=== PATIENT | female | born 1985 | race Caucasian/White ===

== ENCOUNTER 2016-11-26 08:50 | Emergency (ER) | payer MEDICAID, OTHER ==
[2016-11-26 09:10] VITALS: BP 108/71; PULSE 50; RESP 16; TEMP 98.2; O2SAT 100
--- NOTE | 2016-11-26 09:36 | UCPHY ---
H & P Patient Type: Established Chief Complaint Nursing Narrative: C/o R 5th finger and R hand (near pinky side ) pain after it was caught in door today. Pt also c/o small laceration on R 5th finger. HPI/ROS: CHIEF COMPLAINT: Right hand injury HISTORY OF PRESENT ILLNESS: This patient is a 31 year old right-hand dominant woman presenting with acute right hand injury. She was walking her dog with the leash wrapped around her hand and accidentally caught her hand/finger in the door when her dog pulled her. The pain is localized to the base of the right 5th digit extending throughout the finger. Pain is moderate in severity. It is associated with a 1/3 cm superficial laceration between the PIP and the nail bed. She applied ice immediately to her hand and heidi taped her finger. She denies weakness or paresthesia. No other injuries. REVIEW OF SYSTEMS: A ten point review of systems was performed and is negative with the exception of the items mentioned in the HPI. Source: Patient Exam Limitations: No limitations - Personal History LMP (Females 10-55): 15-21 Days Ago Current Tetanus Diphtheria and Acellular Pertussis (TDAP): Yes Tetanus Vaccine Date: Sep 2012 - Medical/Surgical History Hx Asthma: No Hx Chronic Respiratory Disease: No Hx Diabetes: No Hx Cardiac Disease: No Hx Renal Disease: No Hx Cirrhosis: No Hx Alcoholism: No Hx HIV/AIDS: No Hx Splenectomy or Spleen Trauma: No Other PMH: Right femoral osteoplasty, labral reconstruction, appendectomy, ovarian cyst removed. bilateral hip reconstruction, depression. Bladder surgery yesterday for neurogenic bladder. 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 Vital signs reviewed. Focused exam was performed. Extremities: Tenderness and swelling to the right 5th digit. Tenderness over the MCP joint of the right 5th digit with ecchymoses at that site. No obvious deformity. There is a small 1/3cm superficial laceration between the PIP and the nail bed. Vascular: Right radial pulse is 2+. Brisk capillary refill. Neurologic: Sensation is intact to light touch over her right hand. No rotational deformity of the right digits. She is able to fully extend the digits of her right hand. She has pain with attempt to flex at the MCP of the right 5th digit. She is able to flex at the PIP and the IP, although it is uncomfortable for her to do so. Constitutional: Initial Vital Signs Temperature (C) 36.8 C 11/26/16 09:06 Heart Rate 50 L 11/26/16 09:06 Respiratory Rate 16 11/26/16 09:06 Blood Pressure 108/71 11/26/16 09:06 O2 Sat (%) 100 11/26/16 09:06 O2 Delivery Mode Room Air Allergies/Adverse Reactions: ketorolac tromethamine [From Toradol] Allergy (Severe, Verified 11/26/16 09:11) vomiting and rash promethazine HCl [From Phenergan] Allergy (Severe, Verified 11/26/16 09:11) Hives acetaminophen [From Percocet] Allergy (Intermediate, Verified 11/26/16 09:11) Vomiting oxycodone HCl [From Percocet] Allergy (Intermediate, Verified 11/26/16 09:11) Vomiting avocado [Avocado] Allergy (Unknown, Verified 11/26/16 09:11) Diarrhea Isovue 300 Allergy (Severe, Uncoded 11/26/16 09:11) Anaphylaxis, itching IV CONTRAST Allergy (Severe, Uncoded 11/26/16 09:11) Anaphylaxis, itching Home Medications: Medication Instructions Recorded Vitamin B Complex 1 tab PO DAILY 04/11/15 CALCIUM 10/05/15 Vitamin D3 10/05/15 Effexor 16 Hydrocodone/APAP 5/325 [[place] 1 - 2 tab PO Q4 PRN #10 tab 11/26/16 5/325 (RX)] Medical Decision Making - Diagnostics Imaging: Right hand X-ray was obtained. I viewed the images myself on the PACS system. My interpretation of the images is: Fracture of the proximal phalanx of the fifth digit. The radiologist interpretation is: Mildly shortened fracture of the proximal phalanx of the fifth digit. I discussed the x-ray findings with the patient. Procedures: The patient had x-rays taken and I confirmed that the patient had a mildly shortened fracture of the proximal phalanx of the right fifth digit. I do not believe that the patient requires immediate orthopedic consultation, nor do I believe that reduction at a later date will be required. An ulnar gutter ortho-glass splint was applied with ample cast padding in a position of function. After application of the splint, I returned and re-examined the patient. The splint was adequately immobilizing the joint and distal to the splint the patient's circulation and sensation was intact. ED Course/Re-evaluation: This patient presents with acute injury to the right hand, 5th digit. The digit is tender and swollen on exam. There is a superficial laceration, which is non- suturable. Right hand x-ray was obtained and demonstrates mildly shortened fracture of the proximal phalanx of the fifth digit. An orthoglass ulnar-gutter splint was applied by the RN. I have referred the patient to hand surgery. Instructed ibuprofen/Tylenol for pain relief. [place] prescribed for severe pain. Placed in sling for elevation. 1033: I consulted with Dr. Huggins, hand surgery, and informed him of the referral. Differential Diagnosis: Differential diagnosis includes but is not limited to sprain, fracture, dislocation, and contusion. Departure - Departure Disposition: Home, Routine, Self-Care Clinical Impression: Phalanx, proximal fracture of finger Qualifiers: Encounter type: initial encounter Finger: little finger Fracture type: closed Fracture alignment: nondisplaced Laterality: right Qualified Code(s): S62.646A - Nondisplaced fracture of proximal phalanx of right little finger, initial encounter for closed fracture Condition: Good Instructions: Finger Fracture (ED), Splint Care (ED) Additional Instructions: Rest, ice, elevation. Follow up with an hand surgeon within one week. Return to the emergency department for worsening pain, swelling, numbness, weakness or other concerns. Wear splint at all times until reevaluation. Take the [place], as prescribed, for severe pain. Wear the sling to keep your hand elevated. Adult Pain & Fever Control: We recommend Acetaminophen (Tylenol) and Ibuprofen (Motrin,Advil) for pain and fever control. When fever is high or pain severe, both drugs can be used at the same time, but at different intervals. Please note the time differences. Your dose is: Acetaminophen 650mg every 4 to 6 hours Ibuprofen 600mg every 6-8 hours with food Note: do not take Acetaminophen with Hydrocodone (Vicodin, Lortab) or Oycodone (Percocet). These medications also contain Acetaminophen. No more than 3000mg of Acetaminophen should be taken in 24 hours (for an adult). Referrals: Tacos Huggins MD [Medical Doctor] - As per Instructions (Hand surgeon.) Prescriptions: Hydrocodone/APAP 5/325 [[place] 5/325 (RX)] 1 - 2 tab PO Q4 PRN #10 tab PRN Reason: pain - PQRS PQRS Measurement: Does not apply Report Scribed for: Alona Keane Report Scribed by: Natalie Mcfarland Date of Report: 11/26/16 Time of Report: 09:46 Physician Review and Approval Statement: 11/26/16 09:36 Portions of this note were transcribed by the chief medical officer. I, Dr. Alona Keane, personally performed the history, physical exam, and medical decision- making; and confirmed the accuracy of the information in the transcribed note.
== END 2016-11-26 11:19 | disposition home or self-care (01) ==
LOC: CED 08:50
PROC: 2W3JX1Z Immobilization of Right Finger using Splint (ICD-10-PCS; principal; 2016-11-26)
DX: S62.646A Nondisplaced fracture of proximal phalanx of right little finger, initial encounter for closed fracture (principal); W23.1XXA Caught, crushed, jammed, or pinched between stationary objects, initial encounter; Y93.K9 Activity, other involving animal care; Y99.8 Other external cause status
CPT/HCPCS: 73130-PO; A4565; G0463-PO

== ENCOUNTER 2017-06-30 12:58 | Emergency (ER) | payer MEDICAID ==
[2017-06-30 13:13] VITALS: BP 118/62; PULSE 68; RESP 18; TEMP 98.4; O2SAT 97
--- NOTE | 2017-06-30 13:24 | EDPHY ---
H & P Stated Complaint: RT HIP PAIN Time Seen by Provider: 06/30/17 12:58 HPI/ROS: CHIEF COMPLAINT: Right hip pain HISTORY OF PRESENT ILLNESS: The patient presents to the ED with complaints of 2 days of right hip pain. 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 She developed pain inside the hip joint which has been persistent since that time. She is ambulatory however is having discomfort with ambulation. She denies any acute numbness or weakness. She denies additional traumatic injury. The patient does have a prior history of a bilateral hip reconstruction performed at [facility] several years ago. REVIEW OF SYSTEMS: A comprehensive 10 point review of systems is otherwise negative aside from elements mentioned in the history of present illness. Source: Patient Exam Limitations: No limitations - Personal History LMP (Females 10-55): 1-7 Days Ago Current Tetanus/Diphtheria Vaccine: Yes Current Tetanus Diphtheria and Acellular Pertussis (TDAP): Yes Tetanus Vaccine Date: Sep 2012 - Medical/Surgical History Hx Asthma: No Hx Chronic Respiratory Disease: No Hx Diabetes: No Hx Cardiac Disease: No Hx Renal Disease: No Hx Cirrhosis: No Hx Alcoholism: No Hx HIV/AIDS: No Hx Splenectomy or Spleen Trauma: No Other PMH: Right femoral osteoplasty, labral reconstruction, appendectomy, ovarian cyst removed. bilateral hip reconstruction, depression. Bladder surgery yesterday for neurogenic bladder. - Social History Smoking Status: Never smoked - Physical Exam Exam: General Appearance: Alert, no distress Neurological: 5/5 strength noted bilateral lower extremities, sensation intact to light touch throughout the bilateral lower extremities Skin: Warm and dry, no rashes Musculoskeletal: Patient has tenderness to palpation over the right hip, no obvious dislocation, normal range of motion Vascular: 2+ dorsalis pedis and posterior tibial pulses noted bilateral lower extremities Constitutional: Initial Vital Signs Temperature (C) 36.9 C 06/30/17 13:11 Heart Rate 68 06/30/17 13:11 Respiratory Rate 18 06/30/17 13:11 Blood Pressure 118/62 06/30/17 13:11 O2 Sat (%) 97 06/30/17 13:11 O2 Delivery Mode Room Air Allergies/Adverse Reactions: avocado [Avocado] Allergy (Unknown, Verified 11/26/16 09:11) Diarrhea Isovue 300 Allergy (Severe, Uncoded 11/26/16 09:11) Anaphylaxis, itching IV CONTRAST Allergy (Severe, Uncoded 11/26/16 09:11) Anaphylaxis, itching Medical Decision Making - Diagnostics Imaging Results: Right hip x-ray: Images reviewed by myself, negative for obvious fracture dislocation. ED Course/Re-evaluation: The patient presents to the ED with complaints of right hip pain after she landed awkward by dancing. She does have a history of prior orthopedic surgery in the hip. She was taken for x-rays which demonstrate no obvious fracture dislocation. The patient has been advised to follow up with her regular orthopedic surgeon who performed her hip surgery. She is also referred to our on-call orthopedic surgeon in the event she would like more local follow-up. Differential Diagnosis: Differential diagnosis considered includes fracture, dislocation, sprain, labral injury Departure - Departure Disposition: Home, Routine, Self-Care Clinical Impression: Right hip pain Condition: Good Instructions: Musculoskeletal Pain (ED) Additional Instructions: 1. I recommend scheduling a follow-up appointment with your orthopedic surgeon in [place]. 2. Your x-ray demonstrates no evidence of an obvious fracture. 3. Additional imaging including an MRI may be indicated for evaluation of your symptoms. Referrals: Iron Parra MD [Medical Doctor] - As per Instructions
== END 2017-06-30 14:03 | disposition home or self-care (01) ==
LOC: CED 12:58
DX: M25.551 Pain in right hip (principal)
CPT/HCPCS: 73502-PO

== ENCOUNTER → 2017-07-31 | Outpatient (CLI) | payer MEDICAID | LOC: FIMAGING 15:59 | PROVIDERS: ATTEND Family Medicine Sports Medicine | DX: S76.011A Strain of muscle, fascia and tendon of right hip, initial encounter (principal); Y93.41 Activity, dancing; Z98.890 Other specified postprocedural states ==

== ENCOUNTER → 2018-06-14 | Outpatient (CLI) | payer OTHER, MEDICAID | LOC: FIMAGING 08:52 | PROVIDERS: ATTEND Orthopaedic Surgery Sports Medicine | DX: Z01.818 Encounter for other preprocedural examination (principal); M25.552 Pain in left hip ==

== ENCOUNTER 2018-07-28 18:12 | Inpatient (IN) | payer MEDICAID, OTHER ==
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
--- NOTE | 2018-07-28 18:33 | EDPHY ---
ED Progress Note Narrative: Patient is here for preop for orthopedic surgery. She is alert and has normal mental status, medical screening examination offered and she declined.
[2018-07-28] MEDS ORDERED: PROPOFOL/EMULSION 500 MG/50 ML BOTTLE IV ONE (19:00)
[2018-07-28] MEDS ORDERED: fentaNYL 250 MCG/5 ML INJ ONE (19:02)
[2018-07-28] MEDS ORDERED: MIDAZOLAM 2 MG/2 ML VIAL IVP ONE (19:18)
[2018-07-28] MEDS ORDERED: MIDAZOLAM 2 MG/2 ML VIAL ONE ×2 (19:35→21:23)
[2018-07-28] MEDS ORDERED: MEPERIDINE 25 MG/0.5 ML AMP IVP PRN (20:29)
[2018-07-28] MEDS ORDERED: LR 500 ML IV PRN (20:29)
[2018-07-28] MEDS ORDERED: ONDANSETRON 4 MG/2 ML VIAL IVP PRN (20:29)
[2018-07-28] MEDS ORDERED: NALOXONE HCL 0.4 MG/ML INJ IVP PRN (20:29)
[2018-07-28] MEDS ORDERED: ALBUTEROL 3 ML DEYVIAL IH PRN (20:29)
[2018-07-28] MEDS ORDERED: fentaNYL 100 MCG/2 ML INJ IVP PRN (20:29)
[2018-07-28] MEDS ORDERED: DEXAMETHASONE 4 MG/ML VIAL IVP PRN (20:29)
[2018-07-28] MEDS ORDERED: ceFAZolin 1 GM/5 ML SYR ONE ×4 (20:31→20:57)
--- NOTE | 2018-07-28 20:32 | PDANEPAE ---
ANE History of Present Illness 34 year old female for I and D left hip wound s/p ROMARIO. ANE Past Medical History - Pulmonary History Hx Oxygen in Use at Home: No Hx Sleep Apnea: No - Endocrine History Hx Diabetes: No - Chronic Pain History Chronic Pain: No ANE Review of Systems Review of systems is: negative Review of Systems: ANE Patient History - Allergies Allergies/Adverse Reactions: avocado [Avocado] Allergy (Unknown, Verified 07/28/18 18:18) Diarrhea Isovue 300 Allergy (Severe, Uncoded 11/26/16 09:11) Anaphylaxis, itching IV CONTRAST Allergy (Severe, Uncoded 11/26/16 09:11) Anaphylaxis, itching - Home Medications Home Medications: Naproxen 07/28/18 [Last Taken Unknown] Wellbutrin 100mg (*) 07/28/18 [Last Taken Unknown] - NPO status NPO Since - Liquids (Date): 07/28/18 NPO Since - Liquids (Time): 11:30 NPO Since - Solids (Date): 07/28/18 NPO Since - Solids (Time): 11:30 - Smoking Hx Smoking Status: Never smoked ANE Labs/Vital Signs - Vital Signs Blood Pressure: 97/81 Heart Rate: 88 Respiratory Rate: 18 O2 Sat (%): 99 Height: 162.56 cm Weight: 56.699 kg ANE Physical Exam - Airway Neck exam: FROM Mallampati Score: Class 1 Mouth exam: normal dental/mouth exam - Pulmonary Pulmonary: no respiratory distress - Cardiovascular Cardiovascular: regular rate and rhythym - ASA Status ASA Status: I, E ANE Anesthesia Plan Anesthesia Plan: GA w LMA
[2018-07-28] MEDS ORDERED: HYDROmorphONE/DILAUDID 1 MG/ML INJ IVP PRN (21:33)
--- NOTE | 2018-07-28 21:42 | POSTANESTH ---
Post Anesthetic Evaluation Cardiovascular Status: Normal, Stable Respiratory Status: Normal, Stable Level of Consciousness/Mental Status: Can Participate in Eval Pain Control: Adequate, Prn Tx Ordered Nausea/Vomiting Control: Adequate, Prn Tx Ordered Complications Possibly Related to Anesthesia: None Noted
[2018-07-28] MEDS ORDERED: PROMETHAZINE HCL 25 MG/ML INJ ONE (21:45)
[2018-07-28] MEDS ORDERED: DIAZEPAM 10 MG/2 ML SYR IVP PRN (21:50)
[2018-07-28] MEDS ORDERED: HYDROmorphONE/DILAUDID 2 MG/ML INJ ONE (21:51)
[2018-07-28] MEDS ORDERED: DIAZEPAM 5 MG/ML 1 ML SYR ONE (21:53)
[2018-07-28] MEDS: HYDROmorphONE/DILAUDID 2 MG/ML INJ IVP PRN ×2 (22:06→23:44)
[2018-07-28] MEDS ORDERED: SCOPOLAMINE HYDROBROMIDE 1 MG/3 DAYS PATCH TD ONE (22:11)
[2018-07-28] MEDS: SCOPOLAMINE HYDROBROMIDE 1 MG/3 DAYS PATCH TD SCH (22:12)
[2018-07-28] MEDS ORDERED: ceFAZolin 2 GM/DEXTROSE 100 ML IV ONE (22:16)
[2018-07-28] MEDS ORDERED: ACETAMINOPHEN 500 MG TAB PO ONE (22:16)
[2018-07-28] MEDS ORDERED: PREGABALIN 150 MG CAP PO ONE (22:16)
[2018-07-28] MEDS ORDERED: DIAZEPAM 2 MG TAB PO PRN (22:32)
--- NOTE | 2018-07-28 23:54 | SUROPNOTE ---
LISA Operative Report - Surgery Surgery was performed at [facility] on~07/28/18~ Diagnosis: ~Pain/fever/drainage~generated~by superficial infection and possible screw involvement 4 weeks s/p ROMARIO Indication:~Failure to~respond to PO Abx treatment ~ Carmen has taken Keflex [id number] for 5 days with no clinical improvement, she has sub febrile fever up to 38c and on -going drainage. Due to the infection being on top of a screw and lack of clinical improvement we have decided to proceed with an I/D as the potential consequences of deep infection or septic arthritis can be devastating. ~ Consult was done with ID doc and plan was put in place. Cultures taken prior to initiation of Abx Tx showed MSSA. ~ Operation:~Left~incision I/D and~screw~change, multiple cultures of tissue/ screws Surgeon: Mike Sherman MD Doll Eye Setter:~~~Madhav ANAYA Anaesthetic:~General Procedure: The patient was placed in the supine position. Blood cultures were taken. Prepping and draping was performed as per usual fashion.~~ Incision was performed over previous scar to include the proximal area which was open already. No puss or fluid was seen. Cultures were taken from the area. Screw head (proximal, 5.5x95mm) was visible just under the infected area but with no drainage - culture was taken from within the cannulated screw. Rest of abdominal muscle were well healed and both middle and distal screw were well covered with no communication to the suspected infected area. No signs of infection were seen all around.~ Using a screwdriver the screw~was~removed~and 5 liters of irrigation with Ancef (1g/L) were used including into the screw tunnel. Spinal needle was directed into the inner pelvis but no fluid/puss was seen, no swelling was seen distally towards joint. After a thorough irrigation gloves/suction and instruments were changed and a new screw was placed (5.5x90mm) instead of the one which was removed, using a new route driver. This screw was driven deeper into the cortex to enable better soft tissue coverage. More irrigation/Abx~was~performed. Closure was performed through different layers.~The proximal part of the incision was closed with nylon to enable drainage if any. Dressings were applied. ~ Carmen~~tolerated the procedure with no complications. After surgery,~Carmen~~moved both lower limbs and had no NV compromise. ~ Specimen -~numerous Bleeding -~5ml Complication - none Post op instructions: Patient is admitted to the floor (3N) and will be under ID care and myself. Cefazolin 2gm IV q8h. FWB with crutches Kind regards, Dr. Mike Sherman .
[2018-07-29] MEDS: PROMETHAZINE HCL 25 MG/ML INJ IVP PRN ×8 (00:05→21:18)
[2018-07-29] MEDS: HYDROmorphONE/DILAUDID 1 MG/ML INJ IVP PRN (00:53)
[2018-07-29] MEDS: HYDROmorphONE/DILAUDID 6 MG/30 ML PCA IV PRN ×2 (01:36→13:46)
[2018-07-29] MEDS ORDERED: KETOROLAC 15 MG/1 ML SDV IVP ONE (02:00)
[2018-07-29] MEDS ORDERED: NALOXONE HCL 0.4 MG/ML INJ IVP PRN (02:00)
[2018-07-29] MEDS: ceFAZolin 2 GM/DEXTROSE 100 ML IV SCH ×3 (04:49→21:18)
--- NOTE | 2018-07-29 10:15 | PDMN ---
Medical Necessity Medical necessity: Pt meets IP criteria per MD & MCG; est los >2 mn for eval/tx of post-op wound infection w/failed outpatient abx tx s/p L ROMARIO; requiring L hip I&D w/screw removal/replacement, ID consult, IV abx & Dilaudid PARI [employer]; per H&P & order 07/28/18
[2018-07-29] MEDS: DIAZEPAM 5 MG/ML 1 ML SYR IVP PRN ×2 (11:55→18:03)
[2018-07-29 13:49] LABS: PLATELET COUNT 197 10^3/uL (150-400)
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
--- NOTE | 2018-07-29 16:42 | GCON ---
INFECTIOUS DISEASE CONSULTATION DATE OF CONSULTATION: 07/29/2018 REQUESTING PHYSICIAN: Dr. Mervin Ortiz. REASON FOR CONSULTATION: Postoperative hip infection. HISTORY OF PRESENT ILLNESS: The patient is a 33-year-old female who underwent left-sided periacetabu lar osteotomy (ROMARIO) approximately 4 weeks prior to admission, whom I am now asked to see in [facility] for postoperative infection. The patient describes developing a tender, erythematous bump over t he medial incision line approximately 1 week ago. This was associated with fever and chills. The ed ematous area was subsequently surrounded by localized erythema. The patient was evaluated on 018, where manual pressure was applied to the area yielding expression of purulent material which gre w MSSA. The patient was started on cephalexin but did not experience improvement in her symptoms. S he describes having continued drainage with surrounding erythema and had a temperature yesterday of 3 8.0. This prompted her admission with subsequent incision and drainage being performed. Intraoperat ively, she was noted to have an area of inflammatory change underlying a suture which was adjacent to one of her indwelling screws. No purulence was noted in communication with the screw. This screw w as subsequently removed, and the patient was irrigated with a new screw being placed subsequently. M ultiple culture specimens have been obtained with Gram stain showing no organisms and cultures conner douglass pending. The patient notes that she has had accompanying nausea without vomiting. She does desc ribe some diarrhea approximately 2 episodes per day with cephalexin. She is being managed postoperat ively with a ASSEMBLER ERECTOR for postoperative pain. Given the above findings, I am now asked to assist in her o ngoing management. PAST MEDICAL HISTORY: Hip dysplasia. PAST SURGICAL HISTORY: Right-sided ROMARIO, left-sided labral reconstruction, left-sided ROMARIO as noted ab ove. CURRENT MEDICATIONS: Cefazolin 2 g IV q.8 hours, Valium as needed, Dilaudid ASSEMBLER ERECTOR, scopolamine patch a pplied every 72 hours. SOCIAL HISTORY: Patient does not smoke or drink alcohol. 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 ALLERGIES: IV contrast associated with anaphylaxis. FAMILY HISTORY: Heart disease in her grandparents. REVIEW OF SYSTEMS: Outside that noted in the HPI, remainder of 10-system review is unremarkable. PHYSICAL EXAMINATION: VITAL SIGNS: Temperature 36.7, heart rate 57, respiratory rate 17, blood pres sure 87/46, oxygen saturation 97% on room air. GENERAL: Patient is well nourished, well developed, in no acute distress. She appears nontoxic. HEENT: There is no scleral icterus, conjunctival injec tion, or conjunctival petechiae. Oropharynx shows moist mucous membranes with no thrush. Dentition is in good repair. There is no nasal discharge. There is no sinus tenderness. NECK: Supple withou t palpable lymphadenopathy or thyromegaly. CHEST: Clear to auscultation bilaterally without adventi tious sounds. Respiratory effort is normal. CARDIOVASCULAR: Regular rate and rhythm without murmur s, gallops, or rubs. ABDOMEN: Soft, mildly tender around left anterior hip surgical site which is d ressed postoperatively. No surrounding erythema around dressing margins. Bowel sounds are present. No palpable organomegaly. MUSCULOSKELETAL: See abdominal exam. There is mild tenderness over the lateral thigh on the left. No cyanosis or clubbing. SKIN: No rashes noted. No stigmata of endocar ditis. Pictures that the patient has from approximately last week of time were reviewed today. NEUR OLOGIC: Patient is alert and interacts appropriately with examiner. Cranial nerves 2-12 are grossly intact. Muscle tone and bulk are normal. LYMPHATICS: No cervical or supraclavicular nodes. LABORATORY DATA: Hip culture from 07/23/2018, shows growth of MSSA. Multiple Gram stain and culture specimens from her operative procedure are currently pending with no organisms being seen and some s pecimens having white blood cells present. Blood cultures x2 sets are pending. IMPRESSION: Postoperative left hip infection due to methicillin-sensitive Staphylococcus aureus: Op erative findings have been reviewed with Dr. Ortiz with impression that clinical course may be relat ed to underlying stitch abscess, which was in proximity to one of the patient's screws. The screw baker s now been removed and replaced after irrigation and debridement. Will continue cefazolin pending ad ditional culture data. Duration of IV antibiotic therapy will be based in part on patient's clinical course and culture findings. RECOMMENDATIONS: 1. Continue cefazolin 2 g IV q.8 hours. 2. Follow cultures as available. 3. Follow clinical response postoperatively and with IV antibiotic therapy. 4. Follow up blood cultures as available. Thank you for this consultation. We will continue to follow the patient with you. /[id number]/MODL
[2018-07-30] MEDS: PROMETHAZINE HCL 25 MG/ML INJ IVP PRN ×7 (00:19→21:05)
[2018-07-30] MEDS: ceFAZolin 2 GM/DEXTROSE 100 ML IV SCH ×3 (05:30→21:05)
[2018-07-30] MEDS: HYDROmorphONE/DILAUDID 6 MG/30 ML PCA IV PRN ×2 (07:54→18:20)
--- NOTE | 2018-07-30 16:58 | PCMIDPN ---
Assessment/Plan: Assessment/Plan: * Postoperative left hip infection due to MSSA status post incision and drainage with screw removal and replacement: Cultures of suture and tissue around screw both showing growth of MSSA. Likely etiology for infection associated with suture. Given growth of MSSA on tissue localized around screw, favor 2 week course of IV cefazolin versus ceftriaxone which could be administered daily.. Discussed with patient concept of PICC line and outpatient antibiotic therapy today. She would like more time to digest use of PICC line and PICC insertion. Continue cefazolin in interim. 07/30/18 16:55 Subjective: Patient complains of hip pain which is less than yesterday. Has pruritis and nausea. No skin rash. Objective: Vital Signs Temp Pulse Resp BP Pulse Ox 36.7 C 67 14 97/63 L 91 L 07/30/18 16:00 07/30/18 16:00 07/30/18 16:00 07/30/18 16:00 07/30/18 16:00 Laboratory Results 07/29/18 13:40 07/29/18 13:40 07/29/18 07/30/18 07/31/18 05:59 05:59 05:59 Intake Total 1625 100 Output Total 1000 800 Balance 625 -700 Suture culture MSSA Tissue around screw culture MSSA Other operative cultures negative Blood cultures x2 no growth to date - Physical Exam General Appearance: alert, no apparent distress, non-toxic EENT: No scleral icterus Extremities: other (Left hip dressed postoperatively; patient without significant surrounding pain; 1+ surrounding edema; no erythema) Abdomen: non-tender, No distended - Time Spent With Patient Time Spent with Patient: greater than 25 minutes Time Spent with Patient: Greater than 25 minutes spent on this patients care, greater than 50% of time spent counseling, educating, and coordinating care regarding the above mentioned plan. ICD10 Worksheet Patient Problems: Problems Problem Status Onset Nausea and vomiting in adult Acute Pelvic pain in female Acute Phalanx, proximal fracture of finger Acute
--- NOTE | 2018-07-30 21:02 | SOAPPROG ---
SOAP Progress Note Assessment/Plan: Assessment: Plan: 07/30/18 20:59 I saw patient yesterday, POD 1, and today, and discussed her case with ID doc ( Dr Guardado). We are in agreement that to be on the safe side we will proceed with two weeks of IV due to the fact there is a screw in the region. It seems this was a stitch infection and although the stitch was removed we want to make sure the new screw would not get infected. I discussed this with the patient in length. Altogether clinically she is progressing well. Incision area looks good and clean. Dr Sherman Objective: Vital Signs Temp Pulse Resp BP Pulse Ox 36.7 C 65 18 111/59 L 98 07/30/18 20:00 07/30/18 20:00 07/30/18 20:00 07/30/18 20:00 07/30/18 20:00 Laboratory Results 07/29/18 13:40 07/29/18 13:40 07/29/18 07/30/18 07/31/18 05:59 05:59 05:59 Intake Total 1625 100 Output Total 1000 800 Balance 625 -700 ICD10 Worksheet Patient Problems: Problems Problem Status Onset Pelvic pain in female Acute Nausea and vomiting in adult Acute Phalanx, proximal fracture of finger Acute
[2018-07-31] MEDS: PROMETHAZINE HCL 25 MG/ML INJ IVP PRN ×7 (01:27→21:54)
[2018-07-31] MEDS: ceFAZolin 2 GM/DEXTROSE 100 ML IV SCH ×3 (04:56→21:51)
[2018-07-31] MEDS: HYDROmorphONE/DILAUDID 2 MG TAB PO PRN (09:22)
[2018-07-31] MEDS ORDERED: ALTEPLASE 2 MG VIAL IVP PRN (11:50)
--- NOTE | 2018-07-31 11:54 | PDIAF ---
- Diagnosis Diagnosis: Postoperative hip infection Code Status: Full Code - Medication Management Director Of [facility] Antibiotics: Cefazolin 6 g IV Q 24 hr by continuous infusion Snf Antibiotic Stop Date: 08/11/18 Discharge Medications: electronically signed and located in the Home Medication List. PICC Care - Routine: Yes - Orders Services needed: Home Snf Care Face to Face: I certify that this patient was under my care and that I had the required [id number] encounter meeting the encounter requirements on the discharge day. My findings support the fact that the patient is homebound as defined in Home Care Face to Face Continued: CMS Chapter 7 Medicare Benefits Manual 30.1.1 , The condition of the patient is such that there exists a normal inability to leave home and consequently, leaving home would require a considerable and taxing effort. Isolation Type: None - Labs/Radiology CBC w/diff Date: 08/02/18 (Weekly Q ) CMP Date: 08/02/18 (Weekly Q ) Call or Fax Lab and Imaging Results to: Dr. Guardado, - Follow Up Care Current Providers and Referrals: Lilian Amado DO [Primary Care Provider] - As per Instructions Ryan Guardado MD [Medical Doctor] - 08/08/18 2:00 pm
[2018-07-31] MEDS: DIAZEPAM 5 MG/ML 1 ML SYR IVP PRN ×2 (13:42→21:51)
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
--- NOTE | 2018-07-31 14:34 | ASMTCMCOM ---
CM Note CM Note Notes: Pt will d/c with 6 g cefazoline continuous infusion, [facility] can accept for infusion. Pt still needs picc. [facility], [facility]. CM to follow. Date Signed: 07/31/2018 02:33 PM Electronically Signed By:BRYN Sandoval
[2018-07-31] MEDS: HYDROmorphONE/DILAUDID 6 MG/30 ML PCA IV PRN (14:42)
[2018-07-31] MEDS ORDERED: ONDANSETRON 4 MG/2 ML VIAL IVP ONE (15:44)
[2018-07-31] MEDS ORDERED: FLUMAZENIL 0.5 MG/5 ML MDV IVP PRN (15:44)
[2018-07-31] MEDS ORDERED: fentaNYL 100 MCG/2 ML INJ IVP PRN (15:44)
[2018-07-31] MEDS ORDERED: MIDAZOLAM 2 MG/2 ML VIAL IVP PRN (15:44)
[2018-07-31] MEDS ORDERED: NALOXONE HCL 0.4 MG/ML INJ IVP PRN (15:44)
[2018-07-31] MEDS ORDERED: MIDAZOLAM 2 MG/2 ML VIAL ONE (16:59)
[2018-07-31] MEDS ORDERED: fentaNYL 100 MCG/2 ML INJ ONE (17:05)
--- NOTE | 2018-07-31 17:08 | PDPROPOC ---
Sedation Plan of Care Sedation Plan of Care: vital signs stable, mental status noted, patient educated of risks, benefits, alternatives, patient can tolerate sedation ASA Classification: ASA 2 Planned drugs: fentanyl, midazolam Mallampati Score: Class 1 Mallampati Reference Image: Patient passed 3-3-2 rule?: Yes
[2018-07-31] MEDS ORDERED: HYDROmorphONE/DILAUDID 2 MG/ML INJ ONE (17:31)
[2018-07-31] MEDS: HYDROmorphONE/DILAUDID 1 MG/ML INJ IVP PRN (17:36)
--- NOTE | 2018-07-31 20:18 | SOAPPROG ---
SOAP Progress Note Assessment/Plan: Assessment: 3rd day post op Left Hip wash out and screw replacement Plan: IV antibiotics PICC Line D/C home tomorrow Valium script written and put in chart Carmen declines pain medication script as she has enough pain medications at home 07/31/18 20:13 Subjective: I saw Carmen this evening in the PACU after her PICC line placement. She reports decreased pain in Left Hip but still notes some deep ache lateral to incision. She would like to go home tomorrow morning and feels ready to do so. Objective: Vital Signs Temp Pulse Resp BP Pulse Ox 36.7 C 56 L 17 113/67 99 07/31/18 18:40 07/31/18 18:40 07/31/18 18:40 07/31/18 18:40 07/31/18 18:40 Laboratory Results 07/29/18 13:40 07/29/18 13:40 07/30/18 07/31/18 08/01/18 05:59 05:59 05:59 Intake Total 1625 2320 0 Output Total 1000 1400 Balance 625 920 0 Pt still somewhat sedated in the PACU in NAD Left hip: steri strips in place no surrounding erythema some edema and scattered ecchymosis NVI distally full ROM of left lower extremity - Pending Discharge Pending Discharge Within 24 Hours: Yes Pending Discharge Date: 08/01/18 Pending Discharge Time: 11:00 ICD10 Worksheet Patient Problems: Problems Problem Status Onset Nausea and vomiting in adult Acute Pelvic pain in female Acute Phalanx, proximal fracture of finger Acute
[2018-07-31] MEDS: SCOPOLAMINE HYDROBROMIDE 1 MG/3 DAYS PATCH TD SCH (21:51)
[2018-08-01] MEDS: PROMETHAZINE HCL 25 MG/ML INJ IVP PRN ×4 (05:09→20:27)
[2018-08-01] MEDS: ceFAZolin 2 GM/DEXTROSE 100 ML IV SCH ×3 (05:09→20:33)
--- NOTE | 2018-08-01 10:10 | ASMTCMCOM ---
CM Note CM Note Notes: Picc report sent to [facility] in [employer]. Date Signed: 08/01/2018 10:09 AM Electronically Signed By:BRYN Sandoval
[2018-08-01] MEDS: HYDROmorphONE/DILAUDID 6 MG/30 ML PCA IV PRN (10:43)
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
[2018-08-01] MEDS: DIAZEPAM 5 MG/ML 1 ML SYR IVP PRN (14:44)
[2018-08-01] MEDS: HYDROmorphONE/DILAUDID 1 MG/ML INJ IVP PRN ×2 (17:19→21:59)
--- NOTE | 2018-08-01 18:18 | SOAPPROG ---
SOAP Progress Note Assessment/Plan: Assessment: 33 yo F POD 4 s/p L hip wound I&D, screw exchange. Some difficulty with nausea/ vomiting, though improving. Plan: Continue IV antibiotics via PICC line Continue PO/IV pain control Continue benadryl, phenergan PRN nausea as this combination works well for her Continue valium PRN muscle spasm Plan for likely discharge tomorrow if doing well 08/01/18 18:14 Subjective: Pt reports some nausea/vomiting, difficulty tolerating PO. Pain control adequate. Objective: Vital Signs Temp Pulse Resp BP Pulse Ox 36.7 C 61 14 92/65 L 98 08/01/18 15:19 08/01/18 15:19 08/01/18 15:19 08/01/18 15:19 08/01/18 15:19 Laboratory Results 07/29/18 13:40 07/29/18 13:40 07/31/18 08/01/18 08/02/18 05:59 05:59 05:59 Intake Total 2320 784 1360 Output Total 1400 Balance 586 629 7318 L hip dressing c/d/i No significant surrounding erythema ICD10 Worksheet Patient Problems: Problems Problem Status Onset Nausea and vomiting in adult Acute Pelvic pain in female Acute Phalanx, proximal fracture of finger Acute
[2018-08-02] MEDS: PROMETHAZINE HCL 25 MG/ML INJ IVP PRN ×5 (05:24→18:54)
[2018-08-02] MEDS: ceFAZolin 2 GM/DEXTROSE 100 ML IV SCH ×2 (05:38→13:27)
[2018-08-02] MEDS: HYDROmorphONE/DILAUDID 1 MG/ML INJ IVP PRN (05:38)
[2018-08-02] MEDS: HYDROmorphONE/DILAUDID 2 MG TAB PO PRN ×2 (10:33→16:29)
--- NOTE | 2018-08-02 15:35 | PDIAF ---
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 Benadryl 25mg IV Q6 HRS PRN NAUSEA Discharge Medications: electronically signed and located in the Home Medication List. PICC Care - Routine: Yes - Orders Services needed: Home Jail Care Face to Face: I certify that this patient was under my care and that I had the required [id number] encounter meeting the encounter requirements on the discharge day. My findings support the fact that the patient is homebound as defined in Home Care Face to Face Continued: CMS Chapter 7 Medicare Benefits Manual 30.1.1 , The condition of the patient is such that there exists a normal inability to leave home and consequently, leaving home would require a considerable and taxing effort. Isolation Type: None Diet Recommendation: no restrictions on diet Additional Instructions: Full Weight bearing with crutches, IV antibiotics per Infectious Disease, Follow up with Dr. Sherman in 2 weeks. - Labs/Radiology CBC w/diff Date: 08/02/18 (Weekly Q ) CMP Date: 08/02/18 (Weekly Q ) Call or Fax Lab and Imaging Results to: Dr. Guardado, - Follow Up Care Current Providers and Referrals: Ryan Guardado MD [Medical Doctor] - 08/08/18 2:00 pm Lilian Amado DO [Primary Care Provider] - As per Instructions
[2018-08-02 15:43] VITALS: BP 106/72
--- NOTE | 2018-08-02 15:48 | ASMTCMCOM ---
CM Note CM Note Notes: Pt medically stable for d/c with [facility] home infusion and [facility] RN (orders sent in [employer]). Britt in admissions updated, [facility] to deliver IV phenergan and antibiotics to hospital. [facility] to start care tomorrow. Pt has transport home. Date Signed: 08/02/2018 03:48 PM Electronically Signed By:BRYN Sandoval
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
== END 2018-08-02 20:25 | disposition home or self-care (01) | DRG 711 ==
LOC: EDSTATUS 18:12 → FSGY 19:27 → F3N 23:15
PROVIDERS: ADMIT Orthopaedic Surgery Sports Medicine; ATTEND Orthopaedic Surgery Sports Medicine
DX: T85.79XA Infection and inflammatory reaction due to other internal prosthetic devices, implants and grafts, initial encounter (principal); B95.61 Methicillin susceptible Staphylococcus aureus infection as the cause of diseases classified elsewhere
CPT/HCPCS: C1713; C1751; J0690; J1170; J1200; J1885; J2250; J2310; J2550; J2704; J3010; J3360

== ENCOUNTER → 2018-08-08 | Outpatient (CLI) | payer MEDICAID | LOC: FIMAGING 14:33 | PROVIDERS: ATTEND Internal Medicine Infectious Disease | DX: R00.2 Palpitations (principal); T82.898A Other specified complication of vascular prosthetic devices, implants and grafts, initial encounter ==

== ENCOUNTER 2018-10-20 17:26 | Observation (INO) | payer MEDICAID ==
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
[2018-10-20] MEDS ORDERED: HYDROmorphONE/DILAUDID 1 MG/ML INJ IVP ONE ×3 (17:44→19:47)
[2018-10-20] MEDS ORDERED: ONDANSETRON 4 MG/2 ML VIAL IVP ONE (18:29)
[2018-10-20 18:46] LABS: PLATELET COUNT 303 10^3/uL (150-400)
[2018-10-20 18:54] LABS: INR 1.06 (0.83-1.16)
[2018-10-20] MEDS ORDERED: DIAZEPAM 5 MG/ML 1 ML SYR IVP ONE (18:58)
[2018-10-20] MEDS ORDERED: fentaNYL 100 MCG/2 ML INJ IVP ONE (20:38)
[2018-10-20] MEDS ORDERED: HYDROmorphONE/DILAUDID 1 MG/ML INJ IVP PRN (21:29)
[2018-10-20] MEDS ORDERED: ONDANSETRON 4 MG/2 ML VIAL IVP PRN (21:29)
[2018-10-20] MEDS ORDERED: ONDANSETRON DISINTEGRATING 4 MG TAB PO PRN (21:29)
[2018-10-20] MEDS: HYDROmorphONE/DILAUDID 2 MG TAB PO PRN (21:55)
[2018-10-20] MEDS: DIAZEPAM 5 MG TAB PO PRN (21:55)
--- NOTE | 2018-10-20 22:22 | GHP ---
DATE OF ADMISSION: 10/20/2018 CHIEF COMPLAINT: Hip pain. HISTORY OF PRESENT ILLNESS: This is a 33-year-old female, who has a history of bilateral hip dysplas ia, status post bilateral ROMARIO by Dr. Sherman. She states that she was hiking and then she fell on he r left hip, has been unable to move her hip since then. The pain is there with movement and even whe n she is just sitting there. Otherwise, no other symptoms. REVIEW OF SYSTEMS: A 10-point review of systems was obtained and otherwise negative. PAST MEDICAL HISTORY: 1. 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 She was treated with IV antibiotics for 4 weeks and the n had been on oral antibiotics. 2. Depression. 3. Bladder surgery. MEDICATIONS: Reviewed. SOCIAL HISTORY: No smoking or alcohol. FAMILY HISTORY: Reviewed and noncontributory. PHYSICAL EXAMINATION: VITAL SIGNS: Afebrile. Blood pressure is 114/63, heart rate 65, oxygen satur ation 96% on 2 L. GENERAL: The patient in no apparent distress. HEENT: Nonicteric sclerae. Extra ocular movements intact. Moist mucous membranes. NECK: Supple. No thyromegaly. LUNGS: Good effo rt. Clear to auscultation bilaterally. CARDIOVASCULAR: Regular rate and rhythm. No murmurs, rubs, or gallops. ABDOMEN: Positive bowel sounds. Soft, nontender, nondistended. No hepatosplenomegaly . EXTREMITIES: No clubbing or cyanosis. Her left hip has significant pain with any type of motion. LABS: CBC and chemistry are normal. Pelvis CT shows healing osteotomy on the left with no acute fra ctures. ASSESSMENT: Left hip pain after trauma in setting of bilateral osteotomy. PLAN: Dr. Sherman has been contacted by the emergency room physician, and he has said not to get an MRI, and that he will see the patient on Monday if she is still here. In the meantime, we will marta nue with pain control, and we will see if she is able to get any better overnight or the next day or so. /[id number]/MODL
[2018-10-20] MEDS: ACETAMINOPHEN 325 MG TAB PO PRN (23:28)
[2018-10-21] MEDS: HYDROmorphONE/DILAUDID 2 MG TAB PO PRN ×2 (01:58→07:09)
[2018-10-21] MEDS: ACETAMINOPHEN 325 MG TAB PO PRN (05:16)
[2018-10-21] MEDS: DIAZEPAM 5 MG TAB PO PRN (06:15)
[2018-10-21 08:25] VITALS: BP 102/58
[2018-10-21] MEDS ORDERED: ASCORBIC ACID 500 MG TAB PO SCH (09:00)
[2018-10-21] MEDS ORDERED: FERROUS SULFATE 325 MG TAB PO SCH (09:00)
[2018-10-21] MEDS ORDERED: buPROPion XL 150 MG TAB PO SCH (09:00)
[2018-10-21] MEDS ORDERED: ENOXAPARIN 40 MG/0.4 ML SYR SC SCH (09:00)
--- NOTE | 2018-10-21 11:19 | ASMTCMCOM ---
CM Note CM Note Notes: Spoke w/[facility] [employer], pt admitted for a fall but will dc home independent. CM available for any changes. DC Plan: Independent Date Signed: 10/21/2018 11:18 AM Electronically Signed By:Lucy Jones RN
--- NOTE | 2018-10-21 11:22 | ASMTLACE ---
HARSHAD Length of stay for Answers: 1 day current admission Acuity / Level of Answers: No Care: Did the patient have an inpatient admission? Comorbidities - select Answers: History of falls all that apply # of Emergency department Answers: 3-4 visits in the last 6 months Score: 7 Date Signed: 10/21/2018 11:21 AM Electronically Signed By:Lucy Jones RN
--- NOTE | 2018-10-21 12:48 | GDS ---
DISCHARGE DIAGNOSES: Hip pain. PHYSICAL EXAM: GENERAL: The patient is alert. VITAL SIGNS: Afebrile at 36.7, pulse 54, respirator y rate 14, blood pressure is 102/58. She is saturating 93% on room air. I have seen and evaluated t he patient on the day of discharge. HOSPITAL COURSE: Patient is a 33-year-old female who suffered a mechanical fall and presented to the emergency room with complaints of left-sided hip pain. The patient does have a history of bilateral hip dysplasia and has had surgical intervention performed by Dr. Sherman. CT of the pelvis and hip was performed with no fractures identified. The patient's pain is controlled. She will be discharge d home to follow up in the outpatient setting with Dr. Sherman. PENDING STUDIES: There are no pending studies. DISCHARGE MEDICATIONS: I have not provided any prescriptions for the patient at the time of disposit ion. FOLLOWUP: Will be with Dr. Sherman this week, as well as the patient's primary care physician. /[id number]/MODL
== END 2018-10-21 11:43 | disposition home or self-care (01) ==
LOC: EDUNIT# → F3N 21:10
PROVIDERS: ADMIT Internal Medicine; ATTEND Internal Medicine
DX: M25.552 Pain in left hip (principal); S79.912A Unspecified injury of left hip, initial encounter; W00.0XXA Fall on same level due to ice and snow, initial encounter; Y93.01 Activity, walking, marching and hiking; N31.9 Neuromuscular dysfunction of bladder, unspecified; Z87.39 Personal history of other diseases of the musculoskeletal system and connective tissue
CPT/HCPCS: 72192; 73502; G0378; 96374; J1170; J2405; J3010; J3360

== ENCOUNTER 2019-01-14 05:42 | Day surgery (SDC) | payer MEDICAID, OTHER ==
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
[2019-01-14] MEDS ORDERED: PREGABALIN 150 MG CAP PO ONE (05:54)
[2019-01-14] MEDS ORDERED: ceFAZolin 2 GM/DEXTROSE 100 ML IV ONE (05:54)
[2019-01-14] MEDS ORDERED: ACETAMINOPHEN 500 MG TAB PO ONE (05:54)
[2019-01-14] MEDS ORDERED: LR 1,000 ML IV ONE (05:56)
[2019-01-14] MEDS ORDERED: LIDOCAINE 1% 300 MG/30 ML SDV ONE (07:06)
[2019-01-14] MEDS ORDERED: MIDAZOLAM 2 MG/2 ML VIAL IVP ONE (07:08)
[2019-01-14] MEDS ORDERED: MIDAZOLAM 2 MG/2 ML VIAL ONE (07:09)
[2019-01-14] MEDS ORDERED: SCOPOLAMINE HYDROBROMIDE 1 MG/3 DAYS PATCH TD ONE (07:10)
[2019-01-14] MEDS ORDERED: PROPOFOL/EMULSION 500 MG/50 ML BOTTLE IV ONE (07:16)
[2019-01-14] MEDS ORDERED: fentaNYL 250 MCG/5 ML INJ ONE (07:16)
[2019-01-14] MEDS ORDERED: PROPOFOL 200 MG/20 ML VIAL ONE (07:25)
[2019-01-14] MEDS ORDERED: ePHEDrine SULFATE 25 MG/5 ML SYR ONE ×2 (07:40→07:54)
[2019-01-14] MEDS ORDERED: ONDANSETRON 4 MG/2 ML VIAL IVP PRN (07:46)
[2019-01-14] MEDS ORDERED: NALOXONE HCL 0.4 MG/ML INJ IVP PRN (07:46)
[2019-01-14] MEDS ORDERED: METOCLOPRAMIDE 10 MG/2 ML VIAL IVP PRN (07:46)
[2019-01-14] MEDS ORDERED: oxyCODONE IR 5 MG TAB PO PRN (07:46)
[2019-01-14] MEDS ORDERED: HYDROCODONE/APAP 5/325 TAB PO PRN (07:46)
[2019-01-14] MEDS ORDERED: PROMETHAZINE HCL 25 MG/ML INJ IVP PRN (07:46)
--- NOTE | 2019-01-14 07:46 | PDANEPAE ---
ANE History of Present Illness Left hip hardware removal ANE Past Medical History - Cardiovascular History Hx Hypertension: No Hx Arrhythmias: No Hx Chest Pain: No Hx Coronary Artery / Peripheral Vascular Disease: No Hx CHF / Valvular Disease: No Hx Palpitations: No - Pulmonary History Hx COPD: No Hx Asthma/Reactive Airway Disease: No Hx Recent Upper Respiratory Infection: No Hx Oxygen in Use at Home: No Hx Sleep Apnea: No Sleep Apnea Screening Result - Last Documented: Negative - Neurologic History Hx Cerebrovascular Accident: No Hx Seizures: No Hx Dementia: No - Endocrine History Hx Diabetes: No Hypothyroid: No Hyperthyroid: No - Renal History Hx Renal Disorders: No - Liver History Hx Hepatic Disorders: No - Neurological & Psychiatric Hx Hx Neurological and Psychiatric Disorders: No - Cancer History Hx Cancer: No - Congenital Disorder History Hx Congenital Disorders: No - GI History GERD: mild Hx Gastrointestinal Disorders: No Gastrointestinal History Comment: NAUSEA W/ANESTH - NEEDS PATCH & PREMED - Other Health History Other Health History: RUNS LOW IRON - TAKES IRON SUPPLEMENT - Chronic Pain History Chronic Pain: Yes (REGINE HIPS) - Surgical History Prior Surgeries: REGINE ARTHROSCOPIES HIP. REGINE ROMARIO. L INF I & D AND REPLACED HARDWARE ANE Review of Systems Review of systems is: negative Review of Systems: - Exercise capacity METS (RN): 6 METS ANE Patient History - Allergies Allergies/Adverse Reactions: iodine Allergy (Severe, Verified 01/14/19 06:08) Anaphylaxis avocado [Avocado] Allergy (Unknown, Verified 10/20/18 17:36) Diarrhea IV CONTRAST Allergy (Severe, Uncoded 10/20/18 17:36) Anaphylaxis, itching - Home Medications Home medications: home medication list seen and reviewed Home Medications: Albuterol Sulfate [Proair Hfa] 1 - 2 puffs IH Q4H PRN 10/20/18 [Last Taken 1 Month Ago ~12/14/18] Ascorbic Acid [C-1000] 1,000 mg PO DAILY 10/20/18 [Last Taken 01/13/19] Bupropion HCl [Wellbutrin Xl] 300 mg PO DAILY 10/20/18 [Last Taken 01/13/19] Ferrous Sulfate [Ferrous Sulf 325 MG (*)] 325 mg PO DAILY 10/20/18 [Last Taken 01/13/19] Herbals/Supplements -Info Only 01/02/19 [Last Taken 1 Week Ago ~01/07/19] - NPO status NPO Since - Liquids (Date): 01/14/19 NPO Since - Liquids (Time): 02:00 NPO Since - Solids (Date): 01/13/19 NPO Since - Solids (Time): 17:00 - Anes Hx Anes Hx: post operative nausea - Smoking Hx Smoking Status: Never smoked Marijuana use: No - Alcohol Use Alcohol Use: None - Family Anes Hx Family Anes Hx: none ANE Labs/Vital Signs - Vital Signs Blood Pressure: 105/72 Heart Rate: 61 Respiratory Rate: 18 O2 Sat (%): 98 Height: 162.56 cm Weight: 56.699 kg ANE Physical Exam - Airway Neck exam: FROM Mallampati Score: Class 1 Mouth exam: normal dental/mouth exam, poor dentition - Pulmonary Pulmonary: no respiratory distress, no rales or rhonchi - Cardiovascular Cardiovascular: regular rate and rhythym, bradycardia - ASA Status ASA Status: I ANE Anesthesia Plan Anesthesia Plan: GA w LMA
[2019-01-14] MEDS ORDERED: PHENYLEPHRINE HCL 100 MCG/ML SYR ONE (07:54)
[2019-01-14] MEDS ORDERED: KETOROLAC 30 MG/1 ML SDV ONE (07:54)
[2019-01-14] MEDS ORDERED: DEXAMETHASONE 4 MG/ML VIAL ONE (07:54)
[2019-01-14] MEDS ORDERED: ONDANSETRON 4 MG/2 ML VIAL ONE ×2 (07:54→08:26)
[2019-01-14] MEDS ORDERED: fentaNYL 100 MCG/2 ML INJ ONE (08:13)
[2019-01-14] MEDS: fentaNYL 100 MCG/2 ML INJ IVP PRN ×2 (08:16→08:35)
[2019-01-14] MEDS ORDERED: HYDROmorphONE/DILAUDID 1 MG/ML INJ ONE ×2 (08:51→10:07)
[2019-01-14] MEDS: HYDROmorphONE/DILAUDID 1 MG/ML INJ IVP PRN ×4 (08:52→10:10)
[2019-01-14] MEDS ORDERED: DIAZEPAM 10 MG/2 ML SYR ONE ×2 (09:19→12:32)
[2019-01-14] MEDS: DIAZEPAM 10 MG/2 ML SYR IVP PRN ×2 (09:19→09:43)
[2019-01-14] MEDS ORDERED: METOCLOPRAMIDE 10 MG/2 ML VIAL ONE (10:31)
[2019-01-14] MEDS ORDERED: PROMETHAZINE HCL 25 MG/ML INJ ONE (10:36)
--- NOTE | 2019-01-14 11:44 | POSTANESTH ---
Post Anesthetic Evaluation Cardiovascular Status: Normal, Stable Respiratory Status: Normal, Stable Level of Consciousness/Mental Status: Can Participate in Eval Pain Control: Adequate, Prn Tx Ordered Nausea/Vomiting Control: Adequate, Prn Tx Ordered Complications Possibly Related to Anesthesia: None Noted (Patient requires significant pain meds.)
[2019-01-14] MEDS ORDERED: DIAZEPAM 10 MG/2 ML SYR IVP PRN (12:16)
[2019-01-14 13:03] VITALS: BP 94/48
== END 2019-01-14 13:03 | disposition home or self-care (01) ==
LOC: FSGY 05:42
PROVIDERS: ATTEND Orthopaedic Surgery Sports Medicine
PROC: 0QP304Z Removal of Internal Fixation Device from Left Pelvic Bone, Open Approach (ICD-10-PCS; principal; 2019-01-14 07:15)
DX: T84.84XA Pain due to internal orthopedic prosthetic devices, implants and grafts, initial encounter (principal); Y79.2 Prosthetic and other implants, materials and accessory orthopedic devices associated with adverse incidents
CPT/HCPCS: C1713; J0690; J1100; J1170; J1885; J2250; J2370; J2405; J2550; J2704; J2765; J3010; J3360

== ENCOUNTER → 2019-01-18 | Outpatient (CLI) | payer MEDICAID | LOC: FIMAGING 19:11 | PROVIDERS: ATTEND Family Medicine Sports Medicine | DX: S93.691A Other sprain of right foot, initial encounter (principal); M89.8X7 Other specified disorders of bone, ankle and foot; M77.9 Enthesopathy, unspecified ==